=== PATIENT | female | born 1995 | race Caucasian/White ===

== ENCOUNTER → 2023-10-30 11:24 | Outpatient (BNVA) | payer SELFPAY | PROVIDERS: PCP Registered Nurse; Visit Provider Emergency Medicine | DX: J02.9 Acute pharyngitis, unspecified (principal) | CPT/HCPCS: 87071; 87880 ==

== ENCOUNTER → 2024-03-11 10:31 | Outpatient (BNVA) | payer SELFPAY | PROVIDERS: PCP Registered Nurse; Visit Provider Family Medicine | DX: Z34.90 Encounter for supervision of normal pregnancy, unspecified, unspecified trimester (principal); N18.9 Chronic kidney disease, unspecified; R53.83 Other fatigue | CPT/HCPCS: 80307; 81000; 81025; 84144; 84443; 84702; 85025; 86592; 86705; 86706; 86762; 86850; 86900; 87086; 87340; 87491; 87591; 87624; 87806 ==

== ENCOUNTER 2024-03-28 16:31 | Outpatient (CLI) | payer SELFPAY ==
--- NOTE | 2024-03-28 17:00 | USR_ITS ---
PROCEDURE INFORMATION: Exam: US First Trimester, Transabdominal and US , Transvaginal Exam date and time: 03/28/2024 4:50 PM Age: 28 years old Clinical indication: complicated by abdominal or pelvic pain; Left lower quadrant; Second trimester (14 weeks 0 days to 27 weeks 6 days); Gestational age or lmp: 26w 3 day; ; Additional info: Next 1 week if possible LABS AND CLINICAL REPORTS: Gestational age (Established): 9 w 0 d Estimated due date (Established): 10/31/2024 TECHNIQUE: Imaging protocol: Real-time transabdominal obstetrical ultrasound of the maternal pelvis and a first trimester , less than 14 weeks 0 days, with image documentation. Transvaginal imaging was used for better evaluation of the fetus, adnexa, and/or cervix. COMPARISON: No relevant prior studies available. FINDINGS: GESTATION: Gestation: There is an intrauterine with crown-rump length measuring 28 mm. Embryonic/ heart rate: 171 bpm Extra-embryonic membranes/Placenta: Grossly unremarkable. No evidence of subchorionic hemorrhage. Amniotic/Chorionic fluid: Amniotic and extra-amniotic fluid are normal for gestational age. BIOMETRY: Gestational age (AUA): 9 weeks 4 days MATERNAL: Uterus: Uterus measures 5.9 x 8.0 x 10.3 cm Right ovary/adnexa: Right ovary measures 3.0 x 1.7 x 2.5 cm. Flow is visualized. No evidence of adnexal mass. Left ovary/adnexa: Left ovary measures 2.6 x 1.6 x 2.4 cm. Flow is visualized. No evidence of adnexal mass. Intraperitoneal space: No significant pelvic free fluid. US/US OB <= 14 weeks fetus [id number] IMPRESSION: 1. Intrauterine with an estimated gestational age 9 weeks 4 days, corresponding to an estimated delivery October 27, 2024.
== END 2024-03-28 16:32 | disposition home or self-care (01) ==
PROVIDERS: PCP Registered Nurse; Visit Provider Family Medicine
DX: Z34.00 Encounter for supervision of normal first pregnancy, unspecified trimester (principal)
CPT/HCPCS: 76801

== ENCOUNTER → 2024-05-06 12:01 | Outpatient (BNVA) | payer SELFPAY | PROVIDERS: PCP Registered Nurse; Visit Provider Family Medicine | DX: R10.9 Unspecified abdominal pain (principal); R30.0 Dysuria | CPT/HCPCS: 81000; 87086 ==

== ENCOUNTER → 2024-06-02 08:59 | Outpatient (BNVA) | payer MEDICAID, SELFPAY | PROVIDERS: PCP Registered Nurse; Visit Provider Family Medicine | DX: Z34.00 Encounter for supervision of normal first pregnancy, unspecified trimester (principal) | CPT/HCPCS: 81511 ==

== ENCOUNTER 2024-06-03 08:51 | Outpatient (CLI) | payer MEDICAID, SELFPAY ==
--- NOTE | 2024-06-03 09:15 | US_ITS ---
WS: [id number] OBSTETRICAL ULTRASOUND COMPLETE HISTORY: Anatomy scan. COMPARISON: 03/28/2024 Single intrauterine gestation in breech presentation. Cervix is Closed and normal length. Cervical length is 4.9 cm. Normal amount of amniotic fluid surrounds the fetus. Placenta: Posterior, no previa. Placenta grade 0 Heart: 144 BPM. Very limited evaluation of the heart. Four-chamber heart cannot be confirmed. Outflow tracts are not identified. Anatomy: Unremarkable intracranial structures. spine is poorly visualized. kidneys, stoma ch and urinary bladder are unremarkable. Abdominal wall, three-vessel cord and cord insertion site ar e normal. 4 extremities are present. profile: Limited. Gender: Male. measurements: BPD = 4.2 cm = 18w4d; HC = 16.3 cm = 19w1d; AC = 13.5 cm = 19w0d; FL = 3.0 cm = 19w1d; EFW: 269.9 g. 73.1 % Biometry is internally concordant. AGA by ultrasound: 18w6d JACKELYN by ultrasound: 10/29/2024 US/US OB >= 14 weeks fetus [id number] IMPRESSION: 1. Single intrauterine gestation of 18w6d with an JACKELYN of 10/29/2024. Appropria te growth since the prior study. 2. Limited anatomy evaluation. Short-term repeat evaluation of the heart and spine recommended. Remaining anatomy appears appropriate although limited.
== END 2024-06-03 08:52 | disposition home or self-care (01) ==
LOC: RAD 08:52
PROVIDERS: PCP Registered Nurse; Visit Provider Family Medicine
DX: Z34.92 Encounter for supervision of normal pregnancy, unspecified, second trimester (principal); Z3A.18 18 weeks gestation of pregnancy
CPT/HCPCS: 76805

== ENCOUNTER 2024-07-06 09:47 | Outpatient (CLI) | payer MEDICAID, SELFPAY ==
--- NOTE | 2024-07-06 10:00 | USR_ITS ---
PROCEDURE INFORMATION: Exam: US , Limited Exam date and time: 07/06/2024 10:05 AM Age: 28 years old Clinical indication: Screening exam; Routine US, uterus; Additional info: profile, spine, 4 chambered heart and outflow tracts, about 2-3 weeks from now LABS AND CLINICAL REPORTS: Gestational age (Established): 23 w 2 d Estimated due date (Established): 10/31/2024 TECHNIQUE: Imaging protocol: Real-time ultrasound of the maternal uterus with image documentation. Exam focused on the clinical indication. COMPARISON: US OB >= 14 weeks fetus [id number] 06/03/2024 9:24 AM FINDINGS: Gestation: There is a single intrauterine in breech position. Estimated gestational age of 23 weeks and 2 days. Estimated due date of 10/31/2024. heart rate: There is regular cardiac activity with heart rate of 157 bpm. Placenta: The placenta is posterior without evidence for previa. Amniotic fluid index: Amniotic fluid index is grossly within normal limits (index not obtained). ANATOMY: Following structures visualized and unremarkable in appearance: Entire spine, facial profile, four-chamber heart, right ventricular outflow tract, left ventricular outflow tract. MATERNAL: Cervix: Cervix is long and closed, measuring 4.2 cm. US/US OB limited [id number] IMPRESSION: 1. Single live fetus with estimated gestational age of 23 weeks and 2 days. Estimated due date of 10/31/2024. 2. No acute abnormality.
== END 2024-07-06 09:48 | disposition home or self-care (01) ==
LOC: RAD 09:48
PROVIDERS: PCP Registered Nurse; Visit Provider Family Medicine
DX: Z34.02 Encounter for supervision of normal first pregnancy, second trimester (principal); Z3A.23 23 weeks gestation of pregnancy
CPT/HCPCS: 76815

== ENCOUNTER → 2024-08-02 10:53 | Outpatient (BNVA) | payer MEDICAID, SELFPAY | PROVIDERS: PCP Registered Nurse; Visit Provider Family Medicine | DX: Z34.00 Encounter for supervision of normal first pregnancy, unspecified trimester (principal) | CPT/HCPCS: 82950 ==

== ENCOUNTER → 2024-08-04 14:47 | Outpatient (BNVA) | payer MEDICAID, SELFPAY | PROVIDERS: PCP Registered Nurse; Visit Provider Registered Nurse | DX: J02.9 Acute pharyngitis, unspecified (principal) | CPT/HCPCS: 87880 ==

== ENCOUNTER 2024-08-15 09:00 | Oncology outpatient (recurring) (ONCR) | payer MEDICAID, SELFPAY ==
[2024-08-12 10:19] VITALS: BP 131/78; PULSE 84; RESP 18; TEMP 37.2; O2SAT 99
[2024-08-12 10:29] VITALS: BP 131/78; PULSE 84; RESP 18; TEMP 37.2; O2SAT 99
[2024-08-15] MEDS: rho(d) immune globulin 1,500 unit Syringe 1500 UNIT IM (09:45)
[2024-08-15 10:00] VITALS: BP 139/91; PULSE 97; RESP 16; TEMP 36.4; O2SAT 99
== END 2024-08-19 23:59 | disposition home or self-care (01) ==
PROVIDERS: PCP Registered Nurse; Visit Provider Family Medicine
DX: O26.899 Other specified pregnancy related conditions, unspecified trimester (principal); Z67.91 Unspecified blood type, Rh negative
CPT/HCPCS: 36415; 86850; 86900; 96372; J2790

== ENCOUNTER 2024-08-22 09:57 | Outpatient (CLI) | payer MEDICAID, SELFPAY ==
[2024-08-22] VITALS (7 sets, daily range): BP systolic 129–142; BP diastolic 74–87; PULSE 93–114; RESP 16; BMI 29.8
[2024-08-22 10:42] LABS: Reflex FDPQ test REFLEX FDP QUEST TES
[2024-08-22 10:50] LABS: Basophils % 0.3 %; Bilirubin Urine Negative (Negative); Blood Urine Negative (Negative); Eosinophils # 0.1 10^3/uL (0.0-0.8); Eosinophils % 0.8 %; Glucose Urine UA Negative (Normal); Hematocrit 34.2 % (36-47); Ketones Urine Negative (Negative); Leukocyte Esterase Urine 2+ (Negative); Lymphocytes # 1.7 10^3/uL (0.8-4.8); Lymphocytes % 13.4 %; Mean Corpuscular HGB Conc 34.5 g/dL (30-55); Mean Platelet Volume 9.8 fL (7.4-10.4); Monocytes # 0.8 10^3/uL (0.2-0.9); Monocytes % 6.3 %; Neutrophils # 10.07 10^3/uL (1.8-7.7); Neutrophils % 78.7 %; Nitrate Urine Negative (Negative); Nucleated Red Blood Cells % 0 %; Platelet Count 339 10^3/cmm (157-399); Protein Urine Negative (Negative); Red Blood Count 3.93 10^6/uL (3.85-5.65); Red Cell Distribution Width 13.2 % (12.1-15.1); Specific Gravity, Urine 1.005 (1.005-1.030); Urine Appearance Clear (CLEAR); Urine Color Yellow (Yellow); Urobilinogen Urine 0.2 mg/dL (Negative); pH Urine 7.5 (5-7)
[2024-08-22 10:58] LABS: INR 0.84 (0.8-1.2)
[2024-08-22 10:59] LABS: Fibrinogen 511 mg/dL (174-498); Partial Thromboplastin Time 25.5 SECONDS (23.9-36.7)
[2024-08-22 11:02] LABS: D Dimer 0.47 ug/mLFEU (0-0.59)
[2024-08-22 11:05] LABS: UA Manual Slide Review YES
[2024-08-22 11:06] LABS: Alanine Aminotransferase 11 U/L (0-33); Albumin Level 3.6 g/dL (3.5-5.2); Alkaline Phosphatase 91 U/L (35-105); Anion Gap 14.2 (5-19); Aspartate Amino Transferase 14 U/L (0-32); Blood Urea Nitrogen 3 mg/dL (6-20); Calcium 9.5 mg/dL (8.5-10.5); Carbon Dioxide 22 mmol/L (22-29); Chloride 102 mmol/L (98-107); Creatinine Clr Calc Pharmacy 184.4854; Globulin 3.1 g/dL (1.3-4.6); Glucose 115 mg/dL (65-115); Osmolality Calculated 277 mOsm/kg (285-295); Potassium 3.2 mmol/L (3.5-5.1); Sodium 135 mmol/L (136-145); Total Bilirubin 0.2 mg/dL (0.15-1.2); Total Protein 6.7 g/dL (6.6-8.7); Uric Acid 4.5 mg/dL (2.4-5.7); Urine Creatinine 47 mg/dL (28-217); Urine Protein Random 5 mg/dL
[2024-08-22 11:07] LABS: Add Urine Microscopic? YES; Bacteria Urine 1+ /hpf
[2024-08-22 11:08] LABS: Add Urine Culture? No; UPRO/UCREAT Ratio 0.11 mg/mg CR
== END 2024-08-22 11:30 | disposition home or self-care (01) ==
LOC: OPOB 10:00 → OBGYN 10:01
PROVIDERS: PCP Registered Nurse; Visit Provider Family Medicine
DX: O16.9 Unspecified maternal hypertension, unspecified trimester (principal); Z3A.00 Weeks of gestation of pregnancy not specified
CPT/HCPCS: 59025; 80053; 81001; 82570; 84156; 84550; 85025; 85362; 85378; 85384; 85610; 85730; 99211

== ENCOUNTER → 2024-09-01 10:12 | Outpatient (BNVA) | payer MEDICAID, SELFPAY | PROVIDERS: PCP Registered Nurse; Visit Provider Family Medicine | DX: E87.6 Hypokalemia (principal) | CPT/HCPCS: 83735; 84132 ==

== ENCOUNTER 2024-09-15 10:44 | Outpatient (CLI) | payer MEDICAID, SELFPAY ==
[2024-09-15 10:45] VITALS: BMI 31.2
[2024-09-15 11:17] VITALS: BP 135/82; PULSE 94
--- NOTE | 2024-09-15 11:19 | US_ITS ---
WS: [id number] ULTRASOUND OB LIMITED TECHNIQUE: Limited ultrasound examination of the fetus. CLINICAL INFORMATION: Elevated BP FINDINGS: Closed cervix measuring 3.0 cm Single interuterine gestation. presentation is cephalic Placental location is fundal. heart rate 157 BPM. Normal SOPHIA 12.1 cm Biophysical profile 8 out of 8. breathin movement: 2 tone: 2 Amniotic fluid: 2 BDP: 8.3 cm = 33w3d HC: 30.4 cm = 33w6d AC: 29.4 cm = 33w3d FEMUR LENGTH: 6.5 cm = 33w3d Estimated weight: 2195.4 g; 4 pounds 13 ounces EGA by ultrasound: 33w4d JACKELYN by ultrasound: 10/30/2024 IMPRESSION Normal biophysical profile 8 out of 8
[2024-09-15 11:37] VITALS: BP 135/72; PULSE 89
[2024-09-15 11:57] VITALS: BP 126/78; PULSE 93
== END 2024-09-15 12:00 | disposition home or self-care (01) ==
LOC: OPOB 10:44 → OBGYN 10:45 → OPOB 10:59 → OBGYN 11:00
PROVIDERS: PCP Registered Nurse; Visit Provider Family Medicine
DX: O13.9 Gestational [pregnancy-induced] hypertension without significant proteinuria, unspecified trimester (principal); Z3A.00 Weeks of gestation of pregnancy not specified
CPT/HCPCS: 36415; 59025; 76819; 80053; 82570; 84156; 84550; 85025

== ENCOUNTER 2024-09-19 11:42 | Outpatient (CLI) | payer MEDICAID, SELFPAY ==
[2024-09-19 13:45] LABS: Urine Total Protein 4.9 mg/dL (0-150)
[2024-09-19 13:51] LABS: Total Volume, Urine 2800 mL; Urine Total Protein 24 Hour 137.2 mg/24hr (0-150)
== END 2024-09-19 11:43 | disposition home or self-care (01) ==
LOC: LAB 11:43
PROVIDERS: PCP Registered Nurse; Visit Provider Family Medicine
DX: O09.93 Supervision of high risk pregnancy, unspecified, third trimester (principal); O13.9 Gestational [pregnancy-induced] hypertension without significant proteinuria, unspecified trimester
CPT/HCPCS: 84156

== ENCOUNTER 2024-09-21 11:01 | Outpatient (CLI) | payer MEDICAID, SELFPAY ==
--- NOTE | 2024-09-21 11:00 | USR_ITS ---
PROCEDURE INFORMATION: Exam: US , Limited Exam date and time: 09/21/2024 11:13 AM Age: 29 years old Clinical indication: Screening exam; Routine US, uterus; Additional info: Gestational HTN, weekly bpp/sophia/resistive index x 6 LABS AND CLINICAL REPORTS: Gestational age (Established): 34 w 2 d Estimated due date (Established): 10/31/2024 TECHNIQUE: Imaging protocol: Real-time ultrasound of the maternal uterus with image documentation. Exam focused on the clinical indication. COMPARISON: US OB BPP NST [id number] 09/15/2024 11:38 AM FINDINGS: Gestation: Intrauterine gestation. presentation and position: Cephalic. Placenta: Posterior/fundal. Amniotic fluid index: SOPHIA is 20.54 cm. BIOPHYSICAL PROFILE: Biophysical profile score (BPP): 8/8. US/US OB limited [id number] IMPRESSION: Biophysical profile score 8/8.
== END 2024-09-21 11:02 | disposition home or self-care (01) ==
LOC: RAD 11:03
PROVIDERS: PCP Registered Nurse; Visit Provider Family Medicine
DX: O09.93 Supervision of high risk pregnancy, unspecified, third trimester (principal); O13.3 Gestational [pregnancy-induced] hypertension without significant proteinuria, third trimester; Z3A.34 34 weeks gestation of pregnancy
CPT/HCPCS: 76815

== ENCOUNTER 2024-09-21 11:48 | Outpatient (CLI) | payer MEDICAID, SELFPAY ==
[2024-09-21 11:45] VITALS: BMI 30.3
[2024-09-21 12:00] VITALS: BP 123/72; PULSE 88
[2024-09-21 12:20] VITALS: BP 119/72; PULSE 93
[2024-09-21 12:40] VITALS: BP 113/75; PULSE 94
== END 2024-09-21 12:45 | disposition home or self-care (01) ==
LOC: OPOB 11:48 → OBGYN 11:49
PROVIDERS: PCP Registered Nurse; Visit Provider Family Medicine
DX: O16.9 Unspecified maternal hypertension, unspecified trimester (principal); Z3A.00 Weeks of gestation of pregnancy not specified
CPT/HCPCS: 59025

== ENCOUNTER 2024-09-26 14:10 | Outpatient (CLI) | payer MEDICAID, SELFPAY ==
[2024-09-26] VITALS (15 sets, daily range): BP systolic 111–139; BP diastolic 62–81; PULSE 82–96; RESP 16; TEMP 36.7; O2SAT 98; BMI 31.6
== END 2024-09-26 17:50 | disposition home or self-care (01) ==
LOC: OPOB 14:13 → OBGYN 14:14
PROVIDERS: PCP Registered Nurse; Visit Provider Family Medicine
DX: O26.899 Other specified pregnancy related conditions, unspecified trimester (principal); Z3A.00 Weeks of gestation of pregnancy not specified; Z91.81 History of falling
CPT/HCPCS: 59025; 99211

== ENCOUNTER 2024-09-29 10:17 | Outpatient (CLI) | payer MEDICAID, SELFPAY ==
--- NOTE | 2024-09-29 10:22 | US_ITS ---
WS: [id number] ULTRASOUND OB FOCUSED HISTORY: BPP/SOPHIA and RI of Umbilical Artery COMPARISON: 09/21/2024 Single intrauterine gestation in cephalic position. Cervix is closed. heart rate at 148 BPM. Placenta is posterior and fundal, grade 2. Amniotic fluid index: 10.9 cm; normal. BIOPHYSICAL PROFILE Parameters are as follows: Breathin Movement: 2 Tone: 2 Fluid volume: 2 UMBILICAL ARTERY DOPPLER Waveform analysis: Normal systolic and diastolic velocities. Diastolic velocity remains above the baseline. Normal upstroke of waveform. SD ratios: SD ratio 2.0; 25th percentile for age. Resistivity indices: 0.5; near the 25th percentile for age. US/US OB lm w fetalBPP woNST &umb Impression:\ 1. Biophysical profile 8 out of 8. 2. Normal amniotic fluid index. 3. Normal SD ratios and RI ratios of the artery.
== END 2024-09-29 10:18 | disposition home or self-care (01) ==
LOC: RAD 10:18
PROVIDERS: PCP Registered Nurse; Visit Provider Family Medicine
DX: O09.93 Supervision of high risk pregnancy, unspecified, third trimester (principal)
CPT/HCPCS: 76815; 76819; 76820

== ENCOUNTER 2024-09-29 12:15 | Outpatient (CLI) | payer MEDICAID, SELFPAY ==
[2024-09-26 17:30] VITALS: TEMP 36.7
[2024-09-29 12:15] VITALS: BMI 31.9
[2024-09-29 12:22] VITALS: BP 126/77; PULSE 88
[2024-09-29 12:42] VITALS: BP 114/71; PULSE 96
[2024-09-29 12:54] VITALS: BP 114/71; PULSE 96; RESP 16
== END 2024-09-29 12:54 | disposition home or self-care (01) ==
LOC: OPOB 12:17 → OBGYN 12:18
PROVIDERS: PCP Registered Nurse; Visit Provider Family Medicine
DX: O16.9 Unspecified maternal hypertension, unspecified trimester (principal); Z3A.00 Weeks of gestation of pregnancy not specified
CPT/HCPCS: 59025; 99211

== ENCOUNTER 2024-10-06 10:05 | Outpatient (CLI) | payer MEDICAID, SELFPAY ==
[2024-10-06 10:05] VITALS: BMI 32.3
[2024-10-06 10:11] VITALS: BP 141/79; PULSE 82
[2024-10-06 10:14] VITALS: RESP 17
[2024-10-06 10:26] VITALS: BP 130/74; PULSE 100
== END 2024-10-06 10:41 | disposition home or self-care (01) ==
LOC: OPOB 10:06 → OBGYN 10:06
PROVIDERS: PCP Registered Nurse; Visit Provider Family Medicine
DX: O13.9 Gestational [pregnancy-induced] hypertension without significant proteinuria, unspecified trimester (principal); Z3A.00 Weeks of gestation of pregnancy not specified
CPT/HCPCS: 59025

== ENCOUNTER 2024-10-06 11:26 | Outpatient (CLI) | payer MEDICAID, SELFPAY ==
--- NOTE | 2024-10-06 11:35 | USR_ITS ---
PROCEDURE INFORMATION: Exam: US Biophysical Profile Without Non-Stress Test Exam date and time: 10/06/2024 11:43 AM Age: 29 years old Clinical indication: Other: Gestational HTN; TECHNIQUE: Imaging protocol: US biophysical profile without non-stress testing. COMPARISON: US OB lm w fetalBPP woNST umb 09/29/2024 10:25 AM FINDINGS: heart rate: 157 bpm Amniotic fluid index: SOPHIA is 11.79 cm (normal). BIOPHYSICAL PROFILE: breathing (BPP): 2 /2 gross body movement (BPP): 2 /2 tone (BPP): 2 /2 Amniotic fluid (BPP): 2 /2 Biophysical profile score (BPP): 8 /8 MATERNAL ANATOMY: Cervix: Cervical length measures 4 cm. US/US OB BPP wo NST w umb IMPRESSION: Biophysical profile score is normal, 8 out of 8.
== END 2024-10-06 11:27 | disposition home or self-care (01) ==
LOC: RAD 11:26
PROVIDERS: PCP Registered Nurse; Visit Provider Family Medicine
DX: O09.93 Supervision of high risk pregnancy, unspecified, third trimester (principal)
CPT/HCPCS: 76819; 76820; 87081

== ENCOUNTER 2024-10-13 11:34 | Outpatient (CLI) | payer MEDICAID, SELFPAY ==
--- NOTE | 2024-10-13 11:44 | US_ITS ---
WS: [id number] BIOPHYSICAL PROFILE AND LIMITED OB. HISTORY: BPP, SOPHIA, RI COMPARISON: 10/06/2024, 03/28/2024 Presentation: Vertex Cervix: Closed and normal length. Placenta: Posterior, no previa or abruption. Grade: Early grade 3. HEART: FHR of 142BPM. measurements: BPD = 9.0 cm = 36w3d ; 40% HC = 32.9 cm = 37w3d ; 25% AC = 33.2 cm = 37w1d ; 57% FL = 7.3 cm = 37w1d ; 43% SOPHIA: 10.3 centimeters. EFW: 3114.8g; 50% AGA by ultrasound: 37w0d JACKELYN by ultrasound: 11/03/2024 Biophysical profile: Parameters are as follows: Breathin Movement: 2 Tone: 2 Fluid volume: 2 UMBILICAL ARTERY DOPPLER Waveform analysis: Normal systolic and diastolic velocities. Diastolic velocity remains above the baseline. Normal upstroke of waveform. SD ratios: SD ratio, 1.8, 1.6, SD ratio does decrease normally in the third trimester. Resistivity indices: 0.45, 0.36 US/US OB BPP wo NST w umb IMPRESSION: 1. Biophysical profile score: 8/8. 2. Single intrauterine gestation of 37w0d with an EDC of 11/03/2024. Appropriat e growth since the first trimester ultrasound. No growth asymmetry. 3. Normal amniotic fluid. 4. Grade 3 placenta. 5. Low SD ratio near the 10th percentile for age. 6. Low resistivity indices for age near the 5th to the 10th percentile. 7. Normal forward flow in the umbilical artery. There is no reversal of flow or loss of diastolic velocity.
== END 2024-10-13 11:35 | disposition home or self-care (01) ==
LOC: RAD 11:34
PROVIDERS: PCP Registered Nurse; Visit Provider Family Medicine
DX: O09.93 Supervision of high risk pregnancy, unspecified, third trimester (principal); Z3A.37 37 weeks gestation of pregnancy; R93.89 Abnormal findings on diagnostic imaging of other specified body structures
CPT/HCPCS: 76819; 76820

== ENCOUNTER 2024-10-13 12:28 | Outpatient (CLI) | payer MEDICAID, SELFPAY ==
[2024-10-13 12:32] VITALS: BP 138/85; PULSE 74; RESP 16; TEMP 36.4
[2024-10-13 12:38] VITALS: BMI 32.1
[2024-10-13 12:47] VITALS: BP 128/78; PULSE 80
== END 2024-10-13 12:59 | disposition home or self-care (01) ==
LOC: OPOB 12:29 → OBGYN 12:29
PROVIDERS: PCP Registered Nurse; Visit Provider Family Medicine
DX: O16.9 Unspecified maternal hypertension, unspecified trimester (principal); Z3A.00 Weeks of gestation of pregnancy not specified
CPT/HCPCS: 59025

== ENCOUNTER 2024-10-16 00:10 | Outpatient (CLI) | payer MEDICAID, SELFPAY ==
[2024-10-16] VITALS (11 sets, daily range): BP systolic 134–150; BP diastolic 78–91; PULSE 78–88; RESP 18; BMI 32.5
[2024-10-16 01:11] LABS: Basophils % 0.3 %; Eosinophils # 0.1 10^3/uL (0.0-0.8); Eosinophils % 0.9 %; Hematocrit 33.7 % (36-47); Lymphocytes # 2.4 10^3/uL (0.8-4.8); Lymphocytes % 18.3 %; Mean Corpuscular HGB Conc 34.4 g/dL (30-55); Mean Corpuscular Hemoglobin 29.2 pg (27-33); Mean Corpuscular Volume 84.9 fl (85-98); Mean Platelet Volume 9.9 fL (7.4-10.4); Monocytes # 0.9 10^3/uL (0.2-0.9); Monocytes % 7.1 %; Neutrophils # 9.57 10^3/uL (1.8-7.7); Neutrophils % 72.9 %; Nucleated Red Blood Cells % 0 %; Platelet Count 367 10^3/cmm (157-399); Red Blood Count 3.97 10^6/uL (3.85-5.65); Red Cell Distribution Width 12.7 % (12.1-15.1); White Blood Count 13.13 10^3/uL (3.29-11.43)
[2024-10-16 01:17] LABS: Bilirubin Urine Negative (Negative); Blood Urine Negative (Negative); Glucose Urine UA Negative (Normal); Ketones Urine Negative (Negative); Leukocyte Esterase Urine Trace (Negative); Nitrate Urine Negative (Negative); Protein Urine Negative (Negative); Specific Gravity, Urine 1.002 (1.005-1.030); Urine Color Yellow (Yellow); Urobilinogen Urine 0.2 mg/dL (Negative)
[2024-10-16 01:20] LABS: Add Urine Microscopic? YES; Bacteria Urine None Seen /hpf; Hyaline Casts Urine 0-4 /lpf; RBC Urine 0-2 /hpf (0-2); Squamous Epithelial Cell Urine 0-5 /hpf (0-5); WBC Urine 0-5 /hpf (0-5)
[2024-10-16 01:21] LABS: Urine Appearance Clear (CLEAR)
[2024-10-16 01:28] LABS: Alanine Aminotransferase 7 U/L (0-33); Albumin Level 3.7 g/dL (3.5-5.2); Alkaline Phosphatase 157 U/L (35-105); Anion Gap 13.8 (5-19); Aspartate Amino Transferase 14 U/L (0-32); Blood Urea Nitrogen 3 mg/dL (6-20); Calcium 9.4 mg/dL (8.5-10.5); Carbon Dioxide 23 mmol/L (22-29); Chloride 102 mmol/L (98-107); Creatinine Clr Calc Pharmacy 230.6008; Globulin 3.2 g/dL (1.3-4.6); Glomerular Filtration Rate 190.1 mL/min (90-130); Glucose 85 mg/dL (65-115); Osmolality Calculated 278 mOsm/kg (285-295); Sodium 136 mmol/L (136-145); Total Bilirubin 0.2 mg/dL (0.15-1.2); Total Protein 6.9 g/dL (6.6-8.7); Uric Acid 3.9 mg/dL (2.4-5.7)
[2024-10-16 01:36] LABS: Urine Creatinine 14 mg/dL (28-217); Urine Protein Random 4 mg/dL
[2024-10-16 01:37] LABS: UPRO/UCREAT Ratio 0.29 mg/mg CR
[2024-10-16 01:38] LABS: Potassium 2.8 mmol/L (3.5-5.1)
[2024-10-16 02:17] LABS: Magnesium 1.6 mg/dL (1.7-2.3)
[2024-10-16] MEDS: potassium chloride ER 20 mEq Tablet 40 MEQ PO (02:20)
== END 2024-10-16 02:50 | disposition home or self-care (01) ==
LOC: OPOB 00:11 → OBGYN 00:12
PROVIDERS: PCP Registered Nurse; Visit Provider Family Medicine
DX: O13.9 Gestational [pregnancy-induced] hypertension without significant proteinuria, unspecified trimester (principal); Z3A.00 Weeks of gestation of pregnancy not specified
CPT/HCPCS: 36415; 59025; 80053; 81001; 82570; 83735; 84156; 84550; 85025; 99211; J9999

== ENCOUNTER 2024-10-20 11:25 | Outpatient (CLI) | payer MEDICAID, SELFPAY ==
--- NOTE | 2024-10-20 11:35 | USR_ITS ---
PROCEDURE INFORMATION: Exam: US Biophysical Profile Without Non-Stress Test Exam date and time: 10/20/2024 11:39 AM Age: 29 years old Clinical indication: Screening exam; Encounter for screening of mother; Third trimester (>=28 weeks 0 days); ; Additional info: Gestational htn/3rd trimester TECHNIQUE: Imaging protocol: US biophysical profile without non-stress testing. COMPARISON: US OB BPP wo NST w umb 10/13/2024 11:46 AM FINDINGS: heart rate: 136 bpm Amniotic fluid index: SOPHIA is 11.33 cm. BIOPHYSICAL PROFILE: breathing (BPP): 2 /2 gross body movement (BPP): 2 /2 tone (BPP): 2 /2 Amniotic fluid (BPP): 2 /2 Biophysical profile score (BPP): 8 /8 MATERNAL ANATOMY: Cervix: Cervical length measures 3.5 cm. US/US OB BPP wo NST w umb IMPRESSION: Biophysical profile score is 8 out of 8.
== END 2024-10-20 11:26 | disposition home or self-care (01) ==
LOC: RAD 11:29
PROVIDERS: PCP Registered Nurse; Visit Provider Family Medicine
DX: O09.93 Supervision of high risk pregnancy, unspecified, third trimester (principal)
CPT/HCPCS: 76819; 76820; 83735; 84132

== ENCOUNTER 2024-10-20 12:15 | Outpatient (CLI) | payer MEDICAID, SELFPAY ==
[2024-10-20 12:37] VITALS: BP 131/79; PULSE 82
[2024-10-20 12:57] VITALS: BP 123/75; PULSE 89
== END 2024-10-20 13:12 | disposition home or self-care (01) ==
LOC: OPOB 12:16 → OBGYN 12:17
PROVIDERS: PCP Registered Nurse; Visit Provider Family Medicine
DX: O13.9 Gestational [pregnancy-induced] hypertension without significant proteinuria, unspecified trimester (principal); Z3A.00 Weeks of gestation of pregnancy not specified
CPT/HCPCS: 59025

== ENCOUNTER 2024-10-22 09:00 | Inpatient (IN) | payer MEDICAID, SELFPAY ==
[2024-10-22] VITALS (53 sets, daily range): BP systolic 97–145; BP diastolic 54–87; PULSE 68–109; RESP 18; TEMP 36.3–36.4; O2SAT 98–100; BMI 32.3
[2024-10-22 08:36] LABS: Basophils % 0.3 %; Eosinophils # 0.1 10^3/uL (0.0-0.8); Eosinophils % 0.6 %; Hematocrit 34.4 % (36-47); Lymphocytes # 1.6 10^3/uL (0.8-4.8); Lymphocytes % 12.4 %; Mean Corpuscular Hemoglobin 29.1 pg (27-33); Mean Corpuscular Volume 85.6 fl (85-98); Mean Platelet Volume 10.3 fL (7.4-10.4); Monocytes # 0.7 10^3/uL (0.2-0.9); Monocytes % 5.4 %; Neutrophils # 10.34 10^3/uL (1.8-7.7); Neutrophils % 80.9 %; Nucleated Red Blood Cells % 0 %; Platelet Count 330 10^3/cmm (157-399); Red Blood Count 4.02 10^6/uL (3.85-5.65); Red Cell Distribution Width 12.7 % (12.1-15.1); White Blood Count 12.78 10^3/uL (3.29-11.43)
[2024-10-22] MEDS: oxytocin 30 UNIT/500 ML BAG IV (09:55)
[2024-10-22] MEDS: dextrose 5%-lactated ringers 1,000 ML 125 ML IV (09:55)
--- NOTE | 2024-10-22 11:09 | PM.HP ---
Providers/Chief Complaint Primary Care Provider: PAULA Lees Chief Complaint: Poss. SROM, ctx. History of Present Illness Erica Sullivan is a 29 year old @ 38.5 weeks by LMP c/with 9 wk US. c/b hairline tailbone fracture in January 2024, anxiety off of Lexapro, hepatitis B non-immune, Rh negative, h/o syncopal episodes (Possible seizure per patient - maybe more likely syncope by history), gHTN, hypokalemia on Kcl, hypomagnesemia on mag oxide The patient presented to labor and delivery triage on the morning of 10/22/2024 due to concern for spontaneous rupture membranes. The patient woke up at approximately 5:30 AM on 10/22/2024 and after going to the bathroom, she had a large gush of fluid. The fluid continued to come out and she was noted to be grossly ruptured in triage. The patient has not had any contractions. The patient has been feeling well. She denies any fevers, cough, chest pain, shortness of breath, nausea, vomiting, diarrhea, constipation, dysuria, vaginal bleeding, fevers. In triage she was noted to be 3 to 4 cm dilated upon presentation. She was not having any contractions. heart tones have been in the mid 150s with moderate variability and good accelerations with a category 1 tracing. Medications/Allergies Home Medications ?Medication ?Instructions ?Recorded ?Confirmed ?Last Taken ?Type vitamins no.154-ferrous 1 tab PO DAILY 09/15/24 10/22/24 1 Day Ago History fumarate 27 mg-folic acid 1 mg ~10/21/24 tablet magnesium oxide 400 mg PO BID #60 caps 10/20/24 10/22/24 1 Day Ago Rx ~10/21/24 potassium chloride 20 mEq 40 meq (2 x 20 mEq) PO DAILY #60 10/20/24 10/22/24 1 Day Ago Rx tablet,extended release (K-Tab) tabs ~10/21/24 Allergies Allergy/AdvReac Type Severity Reaction Status Date / Time shellfish Allergy Intermediate lip Uncoded 08/04/24 14:45 swelling PFSH Acute PFSH: Medical History Anxiety Surgical History No pertinent past surgical history Family History Mother Diabetes Social History Smoking and tobacco/nicotine status: never used tobacco/nicotine Alcohol intake: never Substance/Drug Use: never Current occupation: [employer] Female Reproductive History: : 1 Vitals/I&O/Wt Last Vital Signs Temp 97.6 F 10/22/24 09:30 Pulse 96 10/22/24 10:48 Resp 18 10/22/24 08:25 BP 132/87 10/22/24 10:48 O2 Del Method Room Air 10/22/24 08:30 10/21/24 10/22/24 10/22/24 22:59 06:59 14:59 Intake Total 84.000 / 84.000 Balance 84.000 / 84.000 Weight last 48 hrs Weight 194 lb Weight 194 lb Physical Exam Narrative: General: Alert and oriented x3 Eyes: Pupils equal round and reactive to light and accommodation Mouth: Mucous membranes moist, pharynx non-erythematous Cardiac: Regular rate and rhythm without murmurs Lungs: Clear to auscultation bilaterally without wheezes, crackles or rhonchi Abdomen: Soft, non-tender, fundus consistent with gestational age Extremities: Trace edema in the bilateral lower extremities Data 10/22/24 07:45 10/22/24 10:30 A&P Assessment and plan (1) Supervision of normal intrauterine in primigravida: The patient is doing well overall at this time. She had spontaneous rupture of membranes and is not yissel significantly. We will go ahead and add IV Pitocin for augmenting labor. The patient may have a laboring epidural if she would like once she is in active labor. IV pain management is okay prior to this as well. Blood pressures are currently in a good range. We will go ahead and check labs to be sure that there are not any abnormalities. Potassium level and magnesium level 2 days ago had returned back to normal with supplementation. We will hold off on supplementation for today unless it is low and plan to recheck after delivery. Currently heart tones are in the category 1 tracing. All questions were answered. The patient and her family are in agreement with the current plan of care. (2) Gestational hypertension: (3) Hypokalemia: (4) Anxiety: (5) Spontaneous rupture of membranes: PDMP PDMP Reviewed: Not Reviewed Attestations Medical Necessity Statement*: The patient will be here for greater than 2 midnights due to routine intrapartum and management of labor and delivery. Coding Level of Care Code Acute Code for Chg Fwd Diagnoses Supervision of normal intrauterine in primigravida Z34.00 Gestational hypertension O13.9 Hypokalemia E87.6 Anxiety F41.9 Spontaneous rupture of membranes
[2024-10-22 11:18] LABS: Alanine Aminotransferase 7 U/L (0-33); Albumin Level 3.4 g/dL (3.5-5.2); Alkaline Phosphatase 141 U/L (35-105); Chloride 106 mmol/L (98-107); Potassium 3.3 mmol/L (3.5-5.1); Sodium 139 mmol/L (136-145); Uric Acid 4.3 mg/dL (2.4-5.7)
[2024-10-22 11:33] LABS: Anion Gap 16.3 (5-19); Blood Urea Nitrogen 3 mg/dL (6-20); Calcium 9.1 mg/dL (8.5-10.5); Carbon Dioxide 20 mmol/L (22-29); Creatinine Clr Calc Pharmacy 229.4016; Globulin 2.9 g/dL (1.3-4.6); Glomerular Filtration Rate 190.1 mL/min (90-130); Glucose 100 mg/dL (65-115); Osmolality Calculated 285 mOsm/kg (285-295); Total Bilirubin 0.3 mg/dL (0.15-1.2); Total Protein 6.3 g/dL (6.6-8.7)
[2024-10-22 11:38] LABS: Magnesium Level (OB Only) 1.6 mg/dL (5.0-7.5)
[2024-10-22 11:44] LABS: Aspartate Amino Transferase 14 U/L (0-32)
[2024-10-22] MEDS: potassium chloride ER 20 mEq Tablet 40 MEQ PO (11:57)
[2024-10-22] MEDS: magnesium oxide 400 mg tablet PO (11:57)
[2024-10-22] MEDS: sodium chloride 0.9% 1,000 ML 999 ML IV ×2 (12:33→14:12)
[2024-10-22] MEDS: ROPivacaine syringe 100 MG/50 ML SYRINGE 10 MG EPIDURAL (13:55)
--- NOTE | 2024-10-22 13:55 | P.ANESUD_ITS ---
Pre-Anesthetic Update Pre-Anesthetic Assessment: Date of Surgery/Procedure: 10/22/24 Preop Sondra gnosis: IUP Proposed Procedure: epidural Any changes to Pre-Anesthetic Assessment?: No Last Intake: full meal 729, currently clears Labs Last 48hrs: Short CBC 10/22/24 Range/Units 07:45 WBC 12.78 H (3.29-11.43) 10^ 3/uL Hgb 11.70 (11.27-16.99) g/ dL Hct 34.4 L (36-47) % MCV 85.6 (85-98) fl Plt Count 330 (157-399) 10^3/c mm Neut % (Auto) 80.9 % Neut # (Auto) 10.34 H (1.8-7.7) 10^3/u L BMP 10/22/24 10:30 Sodium 139 Potassium 3.3 L Chloride 106 Carbon Dioxide 20 L BUN 3 L Creatinine 0.4 L Glucose 100 Calcium 9.1 Liver Function 10/22/24 Range/Units 10:30 Total Bilirubin 0.3 (0.15-1.2) mg/dL AST 14 (0-32) U/L ALT 7 (0-33) U/L Alkaline Phosphata se 141 H (35-105) U/L Albumin 3.4 L (3.5-5.2) g/dL Blood Bank 10/22/24 07:45 Blood Type A Negative Rho(D) Type Rh negative Antibody Screen Positive Vitals: Temperature 97.6 F 10/22/24 09:30 Temperature Source Temporal Artery S can 10/22/24 09:30 Pulse Rate 92 10/22/24 13:50 Respiratory Rate 18 10/22/24 08:25 Respiratory Effort Spontaneous, Non- Labored 10/22/24 08:30 Respiratory Depth Normal 10/22/24 08:30 Respiratory Patter n Normal 10/22/24 08:30 Blood Pressure 130/71 10/22/24 13:50 Pulse Oximetry 100 10/22/24 13:50 Oxygen Delivery Me thod Room Air 10/22/24 08:30 Exam: Pre-Anes Outpt Exam: alert and oriented x 3 Anesthesia Procedures Epidural: Time Out Performed: Yes Consents Signed: Procedure Consent Consent: from patient, risks and benefits reviewed and patient agrees to proceed Lumbar Level: L3-L4 Epidural position: sitting Epidural procedure: sterile prep of area, 1% lidocaine to numb the area, 18 g needle, negative for paresthesia passed, test dose given, 1.5% xylocaine 1:200k epi, placed PCEA, no systemic response, sterile dressing applied, L.U.D. no apparent complications and 0.2% Ropiavacaine @ mls/hr (10) Additional Comments: YANIQUE at 5, negative heme/CSF upon aspiration. taped at 12 at skin. tolerated well.
--- NOTE | 2024-10-22 18:30 | PM.DELIVERY ---
Delivery Note: Date of delivery: October 22, 2024 Pre-delivery diagnoses: 1. Intrauterine at 38.5 weeks gestation 2. Premature rupture of membranes 3. Anxiety 4. Hepatitis B nonimmune 5. Rh- 6. 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 Gestational hypertension 8. Hypokalemia 9. Hypomagnesemia Post-delivery diagnoses: 1. Intrauterine status post spontaneous vaginal delivery at 38.5 weeks gestation 2. Premature rupture of membranes 3. Anxiety 4. Hepatitis B nonimmune 5. Rh- 6. 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 Gestational hypertension 8. Hypokalemia 9. Hypomagnesemia 10. Delivery of healthy infant male weighing 6 pounds 15 ounces with Apgars of 8 and 9 Procedure: Spontaneous vaginal delivery Delivering Physician: Adria Cummings MD Estimated blood loss (mL): 100 Findings: 1. Intact placenta with central vocal cord insertion site 2. Healthy infant male weighing 6 pounds 15 ounces with Apgars of 8 9 Pre-Delivery Course: Erica Sullivan is a 29 year old G1 now P1 status post spontaneous vaginal delivery @ 38.5 weeks by LMP c/with 9 wk US. c/b hairline tailbone fracture in January 2024, anxiety off of Lexapro, hepatitis B non-immune, Rh negative, h/o syncopal episodes (Possible seizure per patient - maybe more likely syncope by history), gHTN, hypokalemia on Kcl, hypomagnesemia on mag oxide The patient presented to labor and delivery triage on the morning of 10/22/2024 due to concern for spontaneous rupture membranes. The patient woke up at approximately 5:30 AM on 10/22/2024 and after going to the bathroom, she had a large gush of fluid. The fluid continued to come out and she was noted to be grossly ruptured in triage. In triage she was noted to be 3 to 4 cm dilated upon presentation. She was not having any contractions. She had a category 1 tracing. The patient was started on IV Pitocin for induction of labor due to premature rupture of membranes. The patient did well with this and began having contractions regularly. She received a laboring epidural that helped to moderate her pain very well. The patient did have a deceleration as she got to 8 cm dilation. The IV Pitocin was stopped and the deceleration improved. The patient was complete by 1530 on 10/22/2024. Delivery: The patient was allowed to labor down and began pushing at 15:56 on 10/22/2024. Her contractions initially were very spaced out and weak so IV Pitocin was gradually added back up until she was at 7 units. With this the began to distend well and the infant delivered in the OA position at 17:48 on 10/22/2024. A nuchal cord was noted and this was reduced prior to delivery of the infant's body. The left shoulder was the anterior shoulder and it delivered with ease. The rest of the delivered with ease. The infant was crying immediately upon delivery and was vigorous. The 's mouth and nose were bulb suction by myself. The was placed on the mother's chest where the nurses were awaiting to care for him. The cord was clamped by myself after approximately 1 minute and cut by the infant's father. Cord blood was obtained. The cord was then drained of blood and traction was placed on the umbilical cord. The placenta delivered without complication at 17:53 on 10/22/2024. The placenta was noted to be intact with a central umbilical cord insertion site. The cervix was inspected and no lacerations were noted. The vaginal wall was inspected and a small second-degree laceration was noted in the perineal region. 1% lidocaine was placed locally for anesthesia. 3-0 Vicryl was used to repair the laceration in a running fashion. A rectal exam was done and no sutures were noted in the rectal vault. Currently the patient's bleeding is light. The patient tolerated the procedure well. Currently both the mother and infant are doing well. History History History 1 Term 1 0 Miscarriages/Ectopic 0 Living Children 1 Past Pregnancies Del. Date GA/Weeks Outcome Route Wt Inf Gender Labor Lgth Comp. Anesthesia Location 10/22/24 38 live - full term Vaginal 6 lb 15 oz Male 12 hr [facility] Delivery Date: 10/22/24 Last Updated by: Adria Cummings MD Small 2nd degree perineal laceration with repair, mild gHTN, Hypokalemia, Hypomagnesemia A&P Assessment and plan (1) Spontaneous vaginal delivery: PDMP PDMP Reviewed: Not Reviewed Coding Level of Care Code Acute Code for Chg Fwd Diagnoses Spontaneous vaginal delivery O80
[2024-10-22] MEDS: ibuprofen 800 mg tablet PO (21:00)
[2024-10-22] MEDS: benzocaine-menthol 78 gm Canister 1 SPRAY TOPICAL (22:59)
[2024-10-23 02:00] VITALS: BP 122/65; PULSE 80; RESP 18
[2024-10-23 06:00] VITALS: BP 117/70; PULSE 74; RESP 18; TEMP 36.6; O2SAT 98
[2024-10-23 06:11] LABS: Hematocrit 30.3 % (36-47); Mean Corpuscular Hemoglobin 29.3 pg (27-33); Mean Corpuscular Volume 86.3 fl (85-98); Mean Platelet Volume 10.1 fL (7.4-10.4); Platelet Count 304 10^3/cmm (157-399); Red Blood Count 3.51 10^6/uL (3.85-5.65); Red Cell Distribution Width 12.9 % (12.1-15.1); White Blood Count 14.74 10^3/uL (3.29-11.43)
[2024-10-23] MEDS: magnesium oxide 400 mg tablet PO (10:18)
[2024-10-23] MEDS: ibuprofen 800 mg tablet PO ×2 (10:18→17:37)
[2024-10-23] MEDS: docusate sodium 100 mg Capsule PO ×2 (10:18→17:37)
[2024-10-23] MEDS: potassium chloride ER 20 mEq Tablet 40 MEQ PO (10:18)
[2024-10-23 11:00] VITALS: BP 122/78; PULSE 76; RESP 16; TEMP 36.8; O2SAT 98
--- NOTE | 2024-10-23 14:26 | PM.DCS ---
Discharge Providers Date of Admission: 10/22/24 09:00 Date of Discharge: October 23, 2024 Attending Provider at Admission: Adria Cummings MD Attending Provider at Discharge: Adria Cummings MD Primary Care Provider: PAULA Lees Diagnoses at Discharge Discharge Diagnosis (1) Spontaneous vaginal delivery: Status: Acute Other Information Additional DC diagnoses/information: 1. Intrauterine status post spontaneous vaginal delivery at 38.5 weeks gestation 2. Premature rupture of membranes 3. Anxiety 4. Hepatitis B nonimmune 5. Rh- 6. 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 Gestational hypertension 8. Hypokalemia 9. Hypomagnesemia 10. Delivery of healthy infant male weighing 6 pounds 15 ounces with Apgars of 8 and 9 Reason for Visit Reason for Visit: Poss. SROM, ctx. Brief History: Erica Sullivan is a 29 year old G1 now P1 status post spontaneous vaginal delivery @ 38.5 weeks by LMP c/with 9 wk US. c/b hairline tailbone fracture in January 2024, anxiety off of Lexapro, hepatitis B non-immune, Rh negative, h/o syncopal episodes (Possible seizure per patient - maybe more likely syncope by history), gHTN, hypokalemia on Kcl, hypomagnesemia on mag oxide The patient presented to labor and delivery triage on the morning of 10/22/2024 due to concern for spontaneous rupture membranes. The patient woke up at approximately 5:30 AM on 10/22/2024 and after going to the bathroom, she had a large gush of fluid. The fluid continued to come out and she was noted to be grossly ruptured in triage. In triage she was noted to be 3 to 4 cm dilated upon presentation. She was not having any contractions. She had a category 1 tracing. Hospital Course Hospital Course The patient was started on IV Pitocin for induction of labor on the morning of 10/23/2024. She received a laboring epidural and it worked well for her. She made steady progress and was complete by 1530 on 10/22/2024. The patient pushed well and delivered a healthy male at 1748 on 10/22/2024. The delivery was uncomplicated. She had a small second-degree perineal laceration that was repaired without complication. , the patient has done well. Her bleeding has decreased well. She is ambulating, voiding, passing gas and tolerating food by mouth. Her pain has been managed well with Motrin alone. Routine discharge instructions were discussed. All questions were answered. The patient request for discharge home this evening. We will plan to follow-up at 6 weeks or sooner if needed. She is to monitor her blood pressure at home and let me know if it is getting elevated or not. She will continue with magnesium and potassium at home due to prior low levels and we will plan to recheck these levels in a couple of weeks. The patient and her are in agreement with the current plan of care. Physical Exam Narrative: General: Alert and oriented x3 Cardiac: Regular rate and rhythm without murmurs Lungs: Clear to auscultation bilaterally without wheezes, crackles or rhonchi Abdomen: Soft, mild tenderness over uterus. The uterus is firm and 4 cm below the umbilicus. Extremities: Trace edema in the bilateral lower extremities Urinary Catheter Management: Manuel: Cath Placed During This Visit: yes, but has since been removed by the nurse Reason for Continuing Indwelling Catheter: Decision to DC Catheter Urinary Catheter Date of Insertion: 10/22/24 Urinary Catheter Time of Insertion: 14:40 Date Urinary Catheter Removed: 10/22/24 Time Urinary Catheter Discontinued: 15:56 Discharge Data Studies Completed and Pending Pending at discharge Category Date Time Status Antibody Identification Routine Lab 10/22/24 07:45 Results Complete Crossmatch Routine Lab 10/22/24 07:45 Results Rho D Immune Globulin Routine Lab 10/22/24 07:45 Results Type and Screen Routine Lab 10/22/24 07:45 Results Laboratory Results WBC 14.74 10^3/uL (3.29-11.43) H 10/23/24 06:00 RBC 3.51 10^6/uL (3.85-5.65) L 10/23/24 06:00 Hgb 10.30 g/dL (11.27-16.99) L 10/23/24 06:00 Hct 30.3 % (36-47) L 10/23/24 06:00 MCV 86.3 fl (85-98) 10/23/24 06:00 MCH 29.3 pg (27-33) 10/23/24 06:00 MCHC 34.0 g/dL (30-55) 10/23/24 06:00 RDW 12.9 % (12.1-15.1) 10/23/24 06:00 Plt Count 304 10^3/cmm (157-399) 10/23/24 06:00 MPV 10.1 fL (7.4-10.4) 10/23/24 06:00 Neut % (Auto) 80.9 % 10/22/24 07:45 Lymph % (Auto) 12.4 % 10/22/24 07:45 [place] % (Auto) 5.4 % 10/22/24 07:45 Eos % (Auto) 0.6 % 10/22/24 07:45 Baso % (Auto) 0.3 % 10/22/24 07:45 Neut # (Auto) 10.34 10^3/uL (1.8-7.7) H 10/22/24 07:45 Lymph # (Auto) 1.6 10^3/uL (0.8-4.8) 10/22/24 07:45 [place] # (Auto) 0.7 10^3/uL (0.2-0.9) 10/22/24 07:45 Eos # (Auto) 0.1 10^3/uL (0.0-0.8) 10/22/24 07:45 Baso # (Auto) 0.0 10^3/uL (0.0-0.1) 10/22/24 07:45 Nucleated RBC % (auto) 0 % 10/22/24 07:45 Nucleated RBCs # 0.0 /100WBC 10/22/24 07:45 Sodium 139 mmol/L (136-145) 10/22/24 10:30 Potassium 3.3 mmol/L (3.5-5.1) L 10/22/24 10:30 Chloride 106 mmol/L (98-107) 10/22/24 10:30 Carbon Dioxide 20 mmol/L (22-29) L 10/22/24 10:30 Anion Gap 16.3 (5-19) 10/22/24 10:30 BUN 3 mg/dL (6-20) L 10/22/24 10:30 Creatinine 0.4 mg/dL (0.5-0.9) L 10/22/24 10:30 GFR Calculation 190.1 mL/min (90-130) H 10/22/24 10:30 Glucose 100 mg/dL (65-115) 10/22/24 10:30 Calculated Osmolality 285 mOsm/kg (285-295) 10/22/24 10:30 Uric Acid 4.3 mg/dL (2.4-5.7) 10/22/24 10:30 Calcium 9.1 mg/dL (8.5-10.5) 10/22/24 10:30 Magnesium 1.6 mg/dL (5.0-7.5) L* 10/22/24 10:30 Total Bilirubin 0.3 mg/dL (0.15-1.2) 10/22/24 10:30 AST 14 U/L (0-32) 10/22/24 10:30 ALT 7 U/L (0-33) 10/22/24 10:30 Alkaline Phosphatase 141 U/L (35-105) H 10/22/24 10:30 Total Protein 6.3 g/dL (6.6-8.7) L 10/22/24 10:30 Albumin 3.4 g/dL (3.5-5.2) L 10/22/24 10:30 Globulin 2.9 g/dL (1.3-4.6) 10/22/24 10:30 Blood Type A Negative 10/22/24 07:45 Rho(D) Type Rh negative 10/22/24 07:45 Antibody Screen Positive 10/22/24 07:45 Antibody Identification Anti-D 10/22/24 07:45 Screen Negative (Negative) 10/23/24 06:00 Vitals Last Vital Signs Temp 97.9 F 10/23/24 06:00 Pulse 74 10/23/24 06:00 Resp 18 10/23/24 06:00 BP 117/70 10/23/24 06:00 Pulse Ox 98 10/23/24 06:00 O2 Del Method Room Air 10/23/24 06:00 Discharge Plan Discharge Patient Disposition: Home Condition: Good Prescriptions: New ibuprofen 800 mg Tablet 800 mg PO TID Qty: 60 0RF ferrous sulfate 325 mg (65 mg iron) tablet,delayed release (DR/EC) 325 mg PO DAILY 14 Days Qty: 14 0RF Continued PNV no.154-iron fumarate-folic 27 mg iron- 1 mg tablet 1 tab PO DAILY potassium chloride [K-Tab] 20 mEq tablet extended release 40 meq PO DAILY Qty: 60 0RF magnesium oxide 400 mg magnesium capsule 400 mg PO BID Qty: 60 0RF Discharge Orders: Discharge Order (Routine); Ordered 10/23/24 Ordered By: Adria Cummings Referrals: Adria Cummings MD [Physician, Family Practice] - 6 Weeks Discharge Diet: Regular Discharge Activity: Limit activity as instructed Patient Instructions: Opioid Safety Activity Restrictions/Additional Instructions: Nothing per vagina for 6 weeks. Showers are recommended instead of baths for the first 6 weeks. Discharge Attestations Time Spent in Discharge Care*: greater than 30 min Quality Metrics Clinical Quality Measures [ No reported AMI, CVA or VTE this stay] Coding Level of Care Code Acute Code for Chg Fwd Diagnoses Spontaneous vaginal delivery O80
[2024-10-23 17:30] VITALS: BP 127/84; PULSE 83; RESP 16; TEMP 36.6; O2SAT 97
[2024-10-23 19:00] VITALS: BP 126/82; PULSE 79; RESP 16; TEMP 36.6; O2SAT 97
== END 2024-10-23 19:04 | disposition home or self-care (01) | DRG 806 ==
LOC: OPOB 18:04 → OBGYN 18:04
PROVIDERS: Admitting Provider Family Medicine; PCP Registered Nurse; Visit Provider Family Medicine
DX: O69.81X0 Labor and delivery complicated by cord around neck, without compression, not applicable or unspecified (principal); B19.10 Unspecified viral hepatitis B without hepatic coma; Z37.0 Single live birth; O13.4 Gestational [pregnancy-induced] hypertension without significant proteinuria, complicating childbirth; O70.1 Second degree perineal laceration during delivery; E87.6 Hypokalemia; F41.9 Anxiety disorder, unspecified; Z3A.38 38 weeks gestation of pregnancy; E83.42 Hypomagnesemia; O99.284 Endocrine, nutritional and metabolic diseases complicating childbirth; O99.344 Other mental disorders complicating childbirth
CPT/HCPCS: 36415; 36430; 51702; 59025; 59409; 80053; 80503; 83735; 84550; 85025; 85027; 85460; 86850; 86870; 86900; 90384; 99211; J2590; J2795; J7030; J7121; J9999

== ENCOUNTER 2024-10-24 21:17 | Emergency (ER) | payer MEDICAID, SELFPAY ==
[2024-10-24 21:29] VITALS: BP 144/89; PULSE 67; RESP 16; TEMP 36.5; O2SAT 99
--- NOTE | 2024-10-24 21:34 | ECG_ITS ---
[facility] Test Date: 2024-10-24 Pat Name: Erica Sullivna Department: Room: Gender: Female Manager Trainee: : 1995 Requested By: Osei Eldridge Order Number: [id number] Pfeiffer MD: Yenni Pardo M.D. Measurements Intervals Stem Rate: 69 P: 43 MI: 167 QRS: 52 QRSD: 70 T: 30 QT: 361 QTc: 388 Interpretive Statements SINUS RHYTHM No previous ECG available for comparison Electronically Signed On 10-26-2024 23:28:54 CDT by Yenni Pardo M.D. [email or web address] [id number]
--- NOTE | 2024-10-24 22:04 | XRR_ITS ---
PROCEDURE INFORMATION: Exam: XR Chest Exam date and time: 10/24/2024 10:12 PM Age: 29 years old Clinical indication: Pain; Chest pressure; Additional info: Chest pain TECHNIQUE: Imaging protocol: Radiologic exam of the chest. Views: 1 view. COMPARISON: No relevant prior studies available. FINDINGS: Lungs: Unremarkable. Pleural spaces: Unremarkable. Heart/Mediastinum: Nonenlarged heart. Bones/joints: No acute fracture. XR/XR chest 1V portable [id number] IMPRESSION: No acute abnormality.
[2024-10-24 22:09] VITALS: BP 140/98; PULSE 84; RESP 18; O2SAT 99
[2024-10-24 22:30] LABS: Basophils # 0.1 10^3/uL (0.0-0.1); Basophils % 0.7 %; Eosinophils # 0.3 10^3/uL (0.0-0.8); Lymphocytes % 17.5 %; Mean Corpuscular HGB Conc 33.8 g/dL (30-55); Mean Corpuscular Hemoglobin 29.5 pg (27-33); Mean Corpuscular Volume 87.4 fl (85-98); Mean Platelet Volume 9.7 fL (7.4-10.4); Monocytes # 0.7 10^3/uL (0.2-0.9); Monocytes % 6.6 %; Neutrophils # 7.99 10^3/uL (1.8-7.7); Neutrophils % 71.8 %; Nucleated Red Blood Cells % 0 %; Platelet Count 345 10^3/cmm (157-399); Red Blood Count 3.66 10^6/uL (3.85-5.65); Red Cell Distribution Width 12.9 % (12.1-15.1); White Blood Count 11.14 10^3/uL (3.29-11.43)
[2024-10-24 22:35] VITALS: BP 140/98; PULSE 76; RESP 15; O2SAT 98
[2024-10-24 22:46] LABS: D Dimer 0.91 ug/mLFEU (0-0.59)
[2024-10-24 22:52] LABS: Alanine Aminotransferase 10 U/L (0-33); Albumin Level 3.3 g/dL (3.5-5.2); Alkaline Phosphatase 115 U/L (35-105); Anion Gap 13.5 (5-19); Aspartate Amino Transferase 16 U/L (0-32); Blood Urea Nitrogen 5 mg/dL (6-20); Calcium 9.4 mg/dL (8.5-10.5); Carbon Dioxide 24 mmol/L (22-29); Chloride 105 mmol/L (98-107); Creatinine Clr Calc Pharmacy 178.7232; Globulin 2.9 g/dL (1.3-4.6); Glomerular Filtration Rate 146.9 mL/min (90-130); Glucose 78 mg/dL (65-115); Magnesium 1.6 mg/dL (1.7-2.3); Osmolality Calculated 284 mOsm/kg (285-295); Potassium 3.5 mmol/L (3.5-5.1); Sodium 139 mmol/L (136-145); Total Bilirubin 0.2 mg/dL (0.15-1.2); Total Protein 6.2 g/dL (6.6-8.7)
--- NOTE | 2024-10-24 22:53 | CTR_ITS ---
PROCEDURE INFORMATION: Exam: CTA Chest With Contrast Exam date and time: 10/24/2024 11:07 PM Age: 29 years old Clinical indication: Pain and abnormal findings; Abnormal diagnostic tests; Elevated d-dimer; Chest pressure; Chest discomfort with hypertension. Dimer 0.91. Two days post . ; Additional info: Chest pain, elevated d dimer TECHNIQUE: Imaging protocol: Computed tomographic angiography of the chest with contrast. Exam focused on the arteries. 3D rendering (Not supervised by radiologist): MIP and/or 3D reconstructed images were created by the technologist. Radiation optimization: All CT scans at this facility use at least one of these dose optimization techniques: automated exposure control; mA and/or kV adjustment per patient size (includes targeted exams where dose is matched to clinical indication); or iterative reconstruction. Contrast material: OMNI 350; Contrast volume: 66 ml; Contrast route: INTRAVENOUS (IV); COMPARISON: CR (CHEST, ) 10/24/2024 10:12 PM RADIATION DOSE METRICS: Total DLP (mGy-cm): 336.32 FINDINGS: Pulmonary arteries: Pulmonary artery opacification is excellent. No pulmonary embolism. Aorta: No thoracic aortic aneurysm. Lungs: Unremarkable. Pleural spaces: Unremarkable. Heart: Unremarkable. Lymph nodes: No enlarged lymph nodes. Bones/joints: No acute fracture. Soft tissues: Unremarkable. CT/CT angio chest PE protcl [id number] IMPRESSION: No pulmonary embolism. Unremarkable lungs.
--- NOTE | 2024-10-24 23:13 | W.ED.CHESTPA ---
HPI - Chest Pain General: Chief Complaint: Chest Pain Stated Complaint: BP High Time Seen by Provider: 10/24/24 21:59 Source: patient History of Present Illness: 29-year-old female, 3 days from uncomplicated vaginal delivery, presents with chest pain and shortness of breath that started last night. Patient reports feeling 'off' all day with associated headache for the past 3 hours. She describes chest discomfort as a sensation of someone sitting on her chest, with pain radiating between shoulder blades. Denies sharp pain or pain with deep breathing but reports inability to take full breaths. Patient had gestational hypertension during without preeclampsia (no proteinuria). Home BP readings have been elevated since discharge, with most recent reading of 151/98. Notable for recent low potassium and magnesium levels during , currently taking supplements. Patient also reports history of GERD during . Related Data Home Medications ?Medication ?Instructions ?Recorded ?Confirmed vitamins no.154-ferrous 1 tab PO DAILY 09/15/24 10/22/24 fumarate 27 mg-folic acid 1 mg tablet Previous Rx's ?Medication ?Instructions ?Recorded magnesium oxide 400 mg PO BID #60 caps 10/20/24 potassium chloride 20 mEq 40 meq (2 x 20 mEq) PO DAILY #60 10/20/24 tablet,extended release (K-Tab) tabs ferrous sulfate 325 mg (65 mg 325 mg PO DAILY 14 days #14 tabs 10/23/24 iron) tablet,delayed release ibuprofen 800 mg tablet 800 mg PO TID #60 tabs 10/23/24 labetalol 100 mg tablet 100 mg PO BID #60 tabs 10/25/24 Allergies Allergy/AdvReac Type Severity Reaction Status Date / Time shellfish Allergy Intermediate lip Uncoded 08/04/24 14:45 swelling PFSH ED PFSH: Medical History Anxiety Surgical History No pertinent past surgical history Family History Mother Diabetes Social History Smoking and tobacco/nicotine status: never used tobacco/nicotine Alcohol intake: never Substance/Drug Use: never Current occupation: [email or web address] Physical Exam Const: COMMON NORMALS: no acute distress, average body habitus, alert and well nourished GENERAL APPEARANCE: cooperative ORIENTATION/CONSCIOUSNESS: Yes awake HENMT: COMMON NORMALS: normocephalic and atraumatic HEAD & SCALP: normocephalic and atraumatic Eye: COMMON NORMALS: conjunctivae normal CONJUNCTIVA: Yes conjunctivae normal Neck/C-Spine: GENERAL: Yes normal visual inspection Resp: COMMON NORMALS: normal respiratory effort, No retractions and No use of accessory muscles Cardio: COMMON NORMALS: regular rhythm and Peripheral pulses 2+ throughout RHYTHM: regular rhythm PERIPHERAL PULSES: Peripheral pulses 2+ throughout GI: COMMON NORMALS: Soft to palpation and non-tender PALPATION: Yes Soft to palpation Extremity: COMMON NORMALS: full ROM and no pedal edema Neuro: COMMON NORMALS: no focal motor deficits SENSORIUM/ORIENTATION: Yes alert Skin: COMMON NORMALS: no rashes or lesions noted GENERAL SKIN EXAM: no rashes or lesions noted Course Vital Signs: Vital signs: Vital Signs Temperature 97.7 F 10/24/24 21:29 Pulse Rate 76 10/24/24 22:35 Respiratory Rate 15 10/24/24 22:35 Blood Pressure 140/98 10/24/24 22:35 Pulse Oximetry 98 10/24/24 22:35 Oxygen Delivery Me thod Room Air 10/24/24 22:35 MDM - Chest Pain Medical Decision Making Review of Systems: Constitutional: Denies fever, sweats Respiratory: Positive for dyspnea, negative for pleuritic chest pain Cardiovascular: Positive for chest pressure/discomfort Gastrointestinal: History of GERD/acid reflux Breast: Denies mastitis symptoms, reports expected soreness All other systems reviewed and negative Medications: Magnesium 400mg daily Potassium supplement 40mEq daily Iron 325mg daily Past Medical History: Gestational hypertension GERD Recent hypokalemia Recent hypomagnesemia Past Surgical History: Recent vaginal delivery with second-degree tear (3 days ago) Social History: , recently Family History: No known family history of blood clots or heart problems Vital Signs: O2 Saturation: 99% on room air Heart rate: Within normal limits (specific value not provided) Blood pressure at home: 151/98 Physical Exam: General: Well-appearing, no acute distress Respiratory: Clear breath sounds bilaterally, no increased work of breathing Cardiovascular: Normal exam Extremities: Trace bilateral lower extremity edema Skin: No rashes or lesions Abdomen: Soft, nontender Lab Results: Pending: CBC, CMP, D-dimer, magnesium level, urinalysis Imaging and Other Relevant Results: EKG: Normal (per previous results) Chest X-ray: Pending Medical Decision Making: Summary Statement: 29-year-old female 3 days presenting with chest pain, dyspnea, and elevated blood pressure requiring evaluation for complications including pulmonary embolism. Problem List: 1. Chest pain and dyspnea 2. hypertension 3. Electrolyte abnormalities 4. Recent state Differential Diagnosis: 1. Pulmonary embolism 2. hypertension/pre-eclampsia 3. GERD exacerbation 4. Anxiety 5. Musculoskeletal pain ED Course: Patient evaluated for complications. Given recent delivery and symptoms, PE workup initiated with D-dimer. Labs ordered to assess electrolytes and end-organ damage. Chest X-ray ordered to evaluate for other causes of symptoms. Assessment and Plan: 1. Chest Pain/Dyspnea: - Obtain D-dimer to evaluate for PE risk - If D-dimer positive, proceed with CT chest with contrast - Chest X-ray to evaluate for other pathology 2. Hypertension: - Monitor blood pressure - Evaluate for preeclampsia with labs - May need antihypertensive medication based on results 3. Electrolyte Abnormalities: - Check magnesium and potassium levels - Continue current supplements pending results 4. GERD: - Consider contribution to symptoms - May need acid suppression therapy Patient's labs are remarkable for a mild hypokalemia and hypomagnesemia. She was given 2 g IV magnesium while here and 40 mEq of p.o. potassium. Her anemia is stable with a hemoglobin of 10.8. Blood pressure was mildly elevated and she was given 2 mg IV hydralazine. Chest x-ray is negative for acute findings. D-dimer was unfortunately mildly elevated and we proceeded with a CT angiogram of the chest. CTA is negative for acute pathology. Urinalysis does not have any proteinuria or any other acute abnormalities. LFTs are normal. Patient's blood pressure is 155/83. Patient states she has had elevated blood pressure readings at home last day or so since discharge. She had suffered from some high blood pressure prior to as well. He is reasonable to go ahead and start her on low-dose labetalol he is reasonable to go ahead and started on low-dose labetalol 100 mg p.o. twice daily. She has means for checking her blood pressure at home and will hold her blood pressure medicine if her blood pressure is less than 120 systolic or her heart rate is less than 60 beats per minute. I recommended she follow-up with her PCP and provided strict return precautions. Lab Data I reviewed the patient's lab results. 10/24/24 22:23 10/24/24 22:23 Radiology Impressions Chest X-Ray 10/24/24 22:04 IMPRESSION: No acute abnormality. Chest CTA 10/24/24 22:53 IMPRESSION: No pulmonary embolism. Unremarkable lungs. Laboratory Results WBC 11.14 10^3/uL (3.29-11.43) 10/24/24 22:23 RBC 3.66 10^6/uL (3.85-5.65) L 10/24/24 22:23 Hgb 10.80 g/dL (11.27-16.99) L 10/24/24 22:23 Hct 32.0 % (36-47) L 10/24/24 22:23 MCV 87.4 fl (85-98) 10/24/24 22:23 MCH 29.5 pg (27-33) 10/24/24 22:23 MCHC 33.8 g/dL (30-55) 10/24/24 22:23 RDW 12.9 % (12.1-15.1) 10/24/24 22:23 Plt Count 345 10^3/cmm (157-399) 10/24/24 22:23 MPV 9.7 fL (7.4-10.4) 10/24/24 22:23 Neut % (Auto) 71.8 % 10/24/24 22:23 Lymph % (Auto) 17.5 % 10/24/24 22:23 [place] % (Auto) 6.6 % 10/24/24 22:23 Eos % (Auto) 3.0 % 10/24/24 22:23 Baso % (Auto) 0.7 % 10/24/24 22:23 Neut # (Auto) 7.99 10^3/uL (1.8-7.7) H 10/24/24 22:23 Lymph # (Auto) 2.0 10^3/uL (0.8-4.8) 10/24/24 22:23 [place] # (Auto) 0.7 10^3/uL (0.2-0.9) 10/24/24 22:23 Eos # (Auto) 0.3 10^3/uL (0.0-0.8) 10/24/24 22:23 Baso # (Auto) 0.1 10^3/uL (0.0-0.1) 10/24/24 22:23 Nucleated RBC % (auto) 0 % 10/24/24 22:23 Nucleated RBCs # 0.0 /100WBC 10/24/24 22:23 D-Dimer 0.91 ug/mLFEU (0-0.59) H 10/24/24 22:23 Sodium 139 mmol/L (136-145) 10/24/24 22:23 Potassium 3.5 mmol/L (3.5-5.1) 10/24/24 22:23 Chloride 105 mmol/L (98-107) 10/24/24 22:23 Carbon Dioxide 24 mmol/L (22-29) 10/24/24 22:23 Anion Gap 13.5 (5-19) 10/24/24 22:23 BUN 5 mg/dL (6-20) L 10/24/24 22:23 Creatinine 0.5 mg/dL (0.5-0.9) 10/24/24 22:23 GFR Calculation 146.9 mL/min (90-130) H 10/24/24 22:23 Glucose 78 mg/dL (65-115) 10/24/24 22:23 Calculated Osmolality 284 mOsm/kg (285-295) L 10/24/24 22:23 Calcium 9.4 mg/dL (8.5-10.5) 10/24/24 22:23 Magnesium 1.6 mg/dL (1.7-2.3) L 10/24/24 22:23 Total Bilirubin 0.2 mg/dL (0.15-1.2) 10/24/24 22:23 AST 16 U/L (0-32) 10/24/24 22:23 ALT 10 U/L (0-33) 10/24/24 22:23 Alkaline Phosphatase 115 U/L (35-105) H 10/24/24 22:23 Total Protein 6.2 g/dL (6.6-8.7) L 10/24/24 22:23 Albumin 3.3 g/dL (3.5-5.2) L 10/24/24 22:23 Globulin 2.9 g/dL (1.3-4.6) 10/24/24 22:23 Urine Color Yellow (Yellow) 10/24/24 23:38 Urine Appearance Clear (CLEAR) 10/24/24 23:38 Urine pH 7.5 (5-7) 10/24/24 23:38 Ur Specific [place] 1.007 (1.005-1.030) 10/24/24 23:38 Urine Protein Negative (Negative) 10/24/24 23:38 Urine Glucose (UA) Negative (Normal) 10/24/24 23:38 Urine Ketones Negative (Negative) 10/24/24 23:38 Urine Blood 2+ (Negative) A 10/24/24 23:38 Urine Nitrate Negative (Negative) 10/24/24 23: Urine Bilirubin Negative (Negative) 10/24/24 23:38 Urine Urobilinogen 0.2 mg/dL (Negative) 10/24/24 23:38 Ur Leukocyte Esterase Trace (Negative) A 10/24/24 23:38 Urine RBC 0-2 /hpf (0-2) 10/24/24 23:38 Urine WBC 0-5 /hpf (0-5) 10/24/24 23:38 Ur Squamous Epith Cells 0-5 /hpf (0-5) 10/24/24 23:38 Amorphous Sediment Not Reportable 10/24/24 23:38 Urine Bacteria None seen /hpf (NONE) 10/24/24 23:38 Hyaline Casts 0-4 /lpf H 10/24/24 23:38 All radiology interpretation(s) finalized by discharge Discharge Plan Discharge Patient Disposition: Home Clinical Impression: Chest pain, Acute hypokalemia, Hypomagnesemia, Hypertension Condition: Stable Prescriptions: New labetalol 100 mg tablet 100 mg PO BID Qty: 60 0RF No Action PNV no.154-iron fumarate-folic 27 mg iron- 1 mg tablet 1 tab PO DAILY potassium chloride [K-Tab] 20 mEq tablet extended release 40 meq PO DAILY Qty: 60 0RF magnesium oxide 400 mg magnesium capsule 400 mg PO BID Qty: 60 0RF ibuprofen 800 mg Tablet 800 mg PO TID Qty: 60 0RF ferrous sulfate 325 mg (65 mg iron) tablet,delayed release (DR/EC) 325 mg PO DAILY 14 Days Qty: 14 0RF Discharge Orders: Discharge ED (Routine); Ordered 10/25/24 Ordered By: Osei Eldridge Referrals: Toya Schulz FNP [Primary Care Provider, Family Practice] Discharge Diet: Low Salt Discharge Activity: Increase activity as tolerated Patient Instructions: Hypertension During (ED), Opioid Safety, Pain Management Activity Restrictions/Additional Instructions: Take medication as directed. Do not take your blood pressure medicine if your systolic blood pressure is less than 120 or if your heart rate is less than 60 bpm. Follow-up with your JOINTER OPERATOR for recheck in 3 to 5 days. Return to the ER for any new or worsening symptoms, increasing chest pain, shortness of breath, passing out, or any other concerns. Print Language: Sinhala Coding Level of Care Code ED Salmon Gillnet Vessel Operator for Hung [facility]ila
[2024-10-24] MEDS: iohexol 350 mg/mL 500 mL Btl (per mL) IV (23:17)
[2024-10-24] MEDS: hyDRALAzine 20 mg/mL INJ 1 mL 10 MG IVP (23:31)
[2024-10-24] MEDS: potassium chloride ER 20 mEq Tablet 40 MEQ PO (23:33)
[2024-10-24] MEDS: magnesium sulfate premix 2 GM/50 ML PIGGYBACK IV (23:36)
[2024-10-24 23:44] LABS: Bilirubin Urine Negative (Negative); Blood Urine 2+ (Negative); Glucose Urine UA Negative (Normal); Ketones Urine Negative (Negative); Leukocyte Esterase Urine Trace (Negative); Nitrate Urine Negative (Negative); Protein Urine Negative (Negative); Specific Gravity, Urine 1.007 (1.005-1.030); Urine Appearance Clear (CLEAR); Urine Color Yellow (Yellow); Urobilinogen Urine 0.2 mg/dL (Negative); pH Urine 7.5 (5-7)
[2024-10-24 23:49] LABS: Add Urine Microscopic? YES; Bacteria Urine None Seen /hpf; Hyaline Casts Urine 0-4 /lpf; RBC Urine 0-2 /hpf (0-2); Squamous Epithelial Cell Urine 0-5 /hpf (0-5); WBC Urine 0-5 /hpf (0-5)
[2024-10-25] MEDS: labetalol 200 mg Tablet 100 MG PO (00:23)
[2024-10-25] MEDS: diphenhydrAMINE 50 mg/mL SDV 1mL IVP (00:23)
[2024-10-25 00:33] VITALS: BP 142/91; PULSE 88; RESP 18; O2SAT 100
[2024-10-25 01:12] VITALS: BP 145/97; PULSE 81; RESP 14; O2SAT 98
== END 2024-10-25 01:03 | disposition home or self-care (01) ==
PROVIDERS: Emergency Provider Student in an Organized Health Care Education/Training Program; PCP Registered Nurse
DX: R07.9 Chest pain, unspecified (principal); E87.6 Hypokalemia; E83.42 Hypomagnesemia; I10 Essential (primary) hypertension
CPT/HCPCS: 36415; 71045; 71275; 80053; 81001; 83735; 85025; 85378; 93005; 96365; 96375; 99285; J0360; J1200; J3475; J9999

== ENCOUNTER → 2024-12-02 11:10 | Outpatient (BNVA) | payer MEDICAID, SELFPAY | PROVIDERS: PCP Registered Nurse; Visit Provider Family Medicine | DX: E87.6 Hypokalemia (principal); E83.42 Hypomagnesemia | CPT/HCPCS: 80048; 83735 ==